=== PATIENT | male | born 1995 | race Caucasian/White ===

== ENCOUNTER 2017-11-05 00:22 | Emergency (ER) | payer SELFPAY ==
--- NOTE | 2017-11-05 00:36 | ER Report ---
History and Physical Time Seen By MD: 00:36 HPI/ROS CHIEF COMPLAINT: Head injury with laceration HISTORY OF PRESENT ILLNESS: This is a 22-year-old male. He is intoxicated. He admits to drinking alcohol and taking a couple of Percocet. Friends also indicate that he used some cocaine tonight. He must have passed out. He has a 2 cm laceration posterior occipital scalp. He is unable to tell me what happened, or want to me what happened. He does know where he is, the date, and the people with him. He denies any other injuries. He denies headache, vision changes, nausea or vomiting, or dizziness. Denies neck and back pain. Allergies: Uncoded Allergies: TARTAR SAUCE (Adverse Reaction, Unknown, 11/05/17) Home Meds No Active Prescriptions or Reported Meds Reviewed Nurses Notes: Yes Constitutional Vital Sign - Last 24 Hours 11/05/17 11/05/17 11/05/17 11/05/17 00:31 00:34 00:37 01:11 Pulse 91 89 Resp 24 44 B/P (MAP) 92/74 92/74 (80) 105/78 (87) Pulse Ox 92 94 O2 Delivery Room Air 11/05/17 01:22 Pulse 84 Resp 15 Pulse Ox 95 Physical Exam General Appearance: Alert, no acute distress. He is intoxicated. Eyes: Pupils equal and round no injection. Extraocular movements are intact. Pupils are reactive to light. ENT: Normal oral mucosa. Moist mucous membranes. Neck: Neck is supple and non tender. Respiratory: Breathing easily, no distress. Cardiac: regular rate and rhythm Musculoskeletal: Extremities have full range of motion. Non tender. Skin: 2 cm scalp laceration posterior occipital scalp. DIFFERENTIAL DIAGNOSIS: After history and physical exam differential diagnosis was considered for head injury, intoxication, scalp laceration Medical Decision Making EKG/Imaging Imaging Head CT scan without contrast COMPARISONS: None ADDITIONAL PERTINENT HISTORY: Head injury. Patient is intoxicated. TECHNIQUE: Multiple axial images were obtained from the skull base to the vertex without IV contrast. One of the following dose optimization techniques was utilized in the performance of this exam: Automated exposure control; adjustment of the mA and/or kV according to the patient's size; or use of an iterative reconstruction technique. Specific details can be referenced in the facility's radiology CT exam operational policy. FINDINGS: Midline shift: Negative Ventricles: Negative Brain parenchyma: Negative Extra-axial spaces: Negative Intracranial vasculature: Negative Osseous structures: Negative Paranasal sinuses and mastoid air cells: Moderate sized mucus retention cyst involving the right maxillary sinus and the right sphenoid sinus. Surrounding soft tissues and orbits: Negative IMPRESSION: 1. Underlying paranasal sinus disease. 2. No evidence of acute intracranial pathology. Report Dictated By: Mele Andres MD at 11/05/2017 1:01 AM ED Course/Re-evaluation ED Course Procedure: Laceration Repair Verbal consent from [patient] after discussing repair options, risks and benefits. Wound cleaned extensively with saline. Anesthesia: None. Location: Posterior occipital scalp. Length: 2 cm.. Wound repair: 2 alison. The wound repair was simple and performed by myself. Wound care instructions discussed. [place] need to be removed in 7 days. Tetanus booster given. Decision to Disposition Date: Nov 05, 2017 Decision to Disposition Time: 00:57 Depart Departure Latest Vital Signs Vital Signs Date Time Temp Pulse Resp B/P (MAP) Pulse Ox O2 Delivery O2 Flow Rate FiO2 11/05/17 01:22 84 15 95 11/05/17 01:11 105/78 (87) 11/05/17 00:31 Room Air Impression: Primary Impression: Scalp laceration Additional Impression: Intoxication Condition: Improved Disposition: HOME OR SELF-CARE New Scripts No Active Prescriptions or Reported Meds Patient Instructions: Alcohol Intoxication (ED), Laceration (ED) Additional Instructions: Wound Care: Wash the wound once a day with soap and water. Dry the wound and apply a small amount of antibiotic ointment with a clean dressing. If the dressing becomes wet or dirty, repeat cleaning and dressing as above. No soaking the wound; no swimming. [place] need to be removed in 7 days. Pain Control: Use Tylenol or ibuprofen for pain. Using and ice pack can help reduce swelling. Problem Qualifiers Primary Impression: Scalp laceration Encounter type: initial encounter Qualified Codes: S01.01XA - Laceration without foreign body of scalp, initial encounter JOSE MELENDREZ MD Nov 05, 2017 00:36
[2017-11-05] MEDS ORDERED: DIPHTH/TETANUS/ACEL. PERTUSSIS IM ONLY ONE (00:45)
--- NOTE | 2017-11-05 01:07 | RADIOLOGY IMAGING REPORT ---
FACILITY: [facility] - [place] PATIENT NAME: Connor Mcwilliams : 1995 MR: [id number] V: [id number] EXAM DATE: ORDERING PHYSICIAN: JOSE MELENDREZ TECHNOLOGIST: Location: [facility] [place] Patient: Connor Mcwilliams : 1995 Visit/Account:[id number] Date of Sevice: 11/05/[address] scan without contrast COMPARISONS: None ADDITIONAL PERTINENT HISTORY: Head injury. Patient is intoxicated. TECHNIQUE: Multiple axial images were obtained from the skull base to the vertex without IV contrast . One of the following dose optimization techniques was utilized in the performance of this exam: Aut omated exposure control; adjustment of the mA and/or kV according to the patient's size; or use of an iterative reconstruction technique. Specific details can be referenced in the facility's radiology CT exam operational policy. FINDINGS: Midline shift: Negative Ventricles: Negative Brain parenchyma: Negative Extra-axial spaces: Negative Intracranial vasculature: Negative Osseous structures: Negative Paranasal sinuses and mastoid air cells: Moderate sized mucus retention cyst involving the right max illary sinus and the right sphenoid sinus. Surrounding soft tissues and orbits: Negative IMPRESSION: 1. Underlying paranasal sinus disease. 2. No evidence of acute intracranial pathology. Report Dictated By: Mele Andres MD at 11/05/2017 1:01 AM Report E-Signed By: Mele Andres MD at 11/05/2017 1:03 AM WSN:[id number]
[2017-11-05 01:11] VITALS: BP 105/78
== END 2017-11-05 01:35 | disposition home or self-care (01) ==
LOC: ER 00:38
DX: S01.01XA Laceration without foreign body of scalp, initial encounter (principal); F10.129 Alcohol abuse with intoxication, unspecified; F14.90 Cocaine use, unspecified, uncomplicated
CPT/HCPCS: 70450; 90471; 90715; 99284